=== PATIENT | male | born 1995 | race African-American/Black ===

== ENCOUNTER 2016-10-05 15:05 | Emergency (ER) | payer SELFPAY ==
[2015-01-18 18:03] VITALS: BP 129/76
[~2016-10-05] VITALS: Ht 180.3 cm; Wt 81.6 kg
[2016-10-05] MEDS ORDERED: PRED20TA PO (15:38)
[2016-10-05] MEDS ORDERED: PROAIR HFA8.5 GM INH (15:38)
[2016-10-05] MEDS ORDERED: DOXY100C2 PO (15:38)
--- NOTE | 2016-10-05 15:38 | PHYS DOC ---
Past Medical History Past Medical History: Migraines, Other Past Surgical History: Other Alcohol Use: Occasionally Drug Use: Marijuana Adult General Chief Complaint Chief Complaint: SORE THROAT HPI HPI Patient is a 21 year old female presents to the emergency Department stating he 's had a 6 day history of cough and congestion. He denies any fever or chills at this time. He does state that he's been coughing up sputum but occasionally has some blood specks in it. He does state he's had some nasal congestion as well. He has had some shortness of air difficulty breathing. He denies any recent travel denies any chest pain or shortness of air. Denies any swelling in his lower extremities. Patient has not taken anything [id number] to help with the symptoms. Patient does have a history of smoking. Review of Systems Review of Systems Constitutional: Denies fever or chills [] Eyes: Denies change in visual acuity, redness, or eye pain [] HENT: nasal congestion and sore throat [] Respiratory: cough and shortness of breath [] Cardiovascular: No additional information not addressed in HPI [] GI: Denies abdominal pain, nausea, vomiting, bloody stools or diarrhea [] : Denies dysuria or hematuria [] Musculoskeletal: Denies back pain or joint pain [] Integument: Denies rash or skin lesions [] Neurologic: Denies headache, focal weakness or sensory changes [] Endocrine: Denies polyuria or polydipsia [] Allergies Allergies Allergies Coded Allergies Type Severity Reaction Last Updated Verified No Known Drug Allergies 01/18/15 No Physical Exam Physical Exam Constitutional: Well developed, well nourished, no acute distress, non-toxic appearance. [] HENT: Normocephalic, atraumatic, bilateral external ears normal, oropharynx moist, no oral exudates, nose normal. Bilateral tympanic membranes appear to be normal. No frontal or maxillary sinus tenderness noted. Patient does have erythematous noted in the left naris. Throat with clear postnasal drip. Eyes: PERRLA, EOMI, conjunctiva normal, no discharge. [] Neck: Normal range of motion, no tenderness, supple, no stridor. [] Cardiovascular:Heart rate regular rhythm, no murmur [] Lungs & Thorax: Bilateral breath sounds clear to auscultation [] Skin: Warm, dry, no erythema, no rash. [] Back: No tenderness Extremities: No tenderness, no cyanosis, no clubbing, ROM intact, no edema. [] Neurologic: Alert and oriented X 3, normal motor function, normal sensory function, no focal deficits noted. [] Psychologic: Affect normal, judgement normal, mood normal. [] Current Patient Data Vital Signs Vital Signs Date Time Temp Pulse Resp B/P (MAP) Pulse Ox O2 Delivery O2 Flow Rate FiO2 10/05/16 15:17 98.4 67 16 97 Room Air 98.4 EKG EKG [] Radiology/Procedures Radiology/Procedures [] Course & Med Decision Making Course & Med Decision Making Pertinent Labs and Imaging studies reviewed. (See chart for details) Patient will be placed on doxycycline with an albuterol inhaler and prednisone. Recommended Mucinex DM [id number] instructed by inside barrel lathe operator. Recommended Tylenol or ibuprofen for fever chills or generalized body aches and discomfort. Also recommended plenty of fluids. Patient will be discharged home in stable condition signs symptoms return back to emergency department provided. Patient agrees with discharge instructions treatment regimens. Also recommended following up in a week with his primary care. [] Dragon Disclaimer Dragon Disclaimer This electronic medical record was generated, in whole or in part, using a voice recognition dictation system. Departure Departure Impression: Primary Impression: Sinusitis Disposition: 01 HOME, SELF-CARE Condition: STABLE Referrals: NO PCP (PCP) Patient Instructions: Sinusitis, [id number], Smoking Cessation, Tips For Success Additional Instructions: Activity as tolerated Medication as prescribed Tylenol or Ibuprofen for fever, chills or generalized body aches Mucinex DM as prescribed by manufacture over the counter Drink plenty of fluids Stop smoking Followup with primary care provider in 5-7 days Return to emergency department as needed for signs and symptoms that become worse. Scripts Albuterol Sulfate (PROAIR HFA INHALER) 8.5 Gm Hfa.aer.ad 1 PUFF INH PRN Q6HRS Y for SHORTNESS OF BREATH, #1 INHALER 0 Refills Prov: MINNIE GIBBONS APRN 10/05/16 Prednisone (PREDNISONE) 20 Mg Tablet 40 MG PO DAILY for 7 Days, #14 TAB Prov: MINNIE GIBBONS APRN 10/05/16 Doxycycline Hyclate (DOXYCYCLINE HYCLATE) 100 Mg Capsule 1 CAP PO BID, #20 CAP Prov: MINNIE GIBBONS APRN 10/05/16 MINNIE GIBBONS APRN Oct 05, 2016 15:38
== END 2016-10-05 15:44 | disposition home or self-care (01) ==
LOC: ER 15:05
DX: J32.9 Chronic sinusitis, unspecified (principal); F12.10 Cannabis abuse, uncomplicated; G43.909 Migraine, unspecified, not intractable, without status migrainosus; Z87.891 Personal history of nicotine dependence
CPT/HCPCS: 99283

== ENCOUNTER 2017-09-06 14:49 | Emergency (ER) | payer SELFPAY ==
[2017-09-06] MEDS ORDERED: FLUORESCEIN OPHTH TEST STRIP. (15:00)
[2017-09-06] MEDS ORDERED: TETRACAINE 0.5% OPHTH SOLUTION 4ML BOTTLE. (15:00)
[2017-09-06] MEDS: FLUORESCEIN OPHTH TEST STRIP. OS (15:04)
[2017-09-06] MEDS: TETRACAINE 0.5% OPHTH SOLUTION 4ML BOTTLE. OS (15:04)
[2017-09-06] MEDS: KETOTIFEN FUMARATE 0.025% OPHTH SOLUTION BOTTLE. OS (15:36)
[2017-09-06] MEDS: ERYTHROMYCIN 0.5% OPHTH OINTMENT 1GM TUBE. OS (15:36)
== END 2017-09-06 15:51 | disposition home or self-care (01) ==
LOC: ER 15:51
DX: H10.12 Acute atopic conjunctivitis, left eye (principal); J45.909 Unspecified asthma, uncomplicated; G43.909 Migraine, unspecified, not intractable, without status migrainosus; F12.10 Cannabis abuse, uncomplicated
CPT/HCPCS: 99284